=== PATIENT | female | born 1950 | race African-American/Black ===

== ENCOUNTER 2016-06-04 01:30 | Emergency (ER) | payer MEDICARE, MEDICAID ==
[~2016-06-04] VITALS: Ht 160 cm; Wt 65.0 kg
[~2016-06-04 01:30] MED LIST: SIMV20TA6; WELLBUTRIN; [UNRECOGNIZED DRUG - CODE]
[2016-06-04] MEDS ORDERED: KETOROLAC 60MG/2ML VIAL IM STA (01:59)
[2016-06-04] MEDS ORDERED: CYCLOBENZAPRINE 10MG TABLET PO ONE (02:00)
[2016-06-04 02:32] LABS: BASOPHILS % 2.3 % (0.0-2.0); EOSINOPHILS % 0.6 % (0.0-5.0); HEMATOCRIT. 37.7 % (36.0-48.0); HEMOGLOBIN. 11.4 g/dL (12.0-16.0); MEAN CORPUSCULAR HEMOGLOBIN 19.4 pg (28.0-32.0); MEAN CORPUSCULAR HGB CONC 30.3 g/dL (31.0-37.0); MEAN CORPUSCULAR VOLUME 64.1 fL (81.0-99.0); MEAN PLATELET VOLUME 9.7 fl (7.4-10.4); MONOCYTES % 10.2 % (2.0-8.0); NEUTROPHILS % 56.9 % (40.0-76.0); PLATELET 264 x1000/uL (130-400); RED BLOOD CELL COUNT 5.87 mill/uL (4.2-5.4); RED CELL DISTRIBUTION WIDTH 16.6 % (11.6-14.6); WHITE BLOOD COUNT 9.1 x1000/uL (4.5-11.0)
[2016-06-04 02:34] LABS: ADD RBC MORPHOLOGY YES; DIFFERENTIAL COMMENT 1
[2016-06-04 02:35] LABS: HYPOCHROMASIA 2+; PLATELET ESTIMATE NORMAL
[2016-06-04 02:44] LABS: ALANINE AMINOTRANSFERASE 33 IU/L (13-61); ALBUMIN 3.4 g/dL (3.4-5.0); ANION GAP 11; CALCIUM 9.7 mg/dL (8.5-10.1); CARBON DIOXIDE 28 mEq/L (21-32); CHLORIDE 106 mEq/L (98-107); CREATINE KINASE 211 IU/L (26-192); INDEX HEMOLYSI 1 (1-3); INDEX ICTERIC 1 (1-4); INDEX LIPEMIC 1 (1-3); UREA NITROGEN BLOOD 20 mg/dL (7-21); eGFR 60 mL/min (>60)
[2016-06-04 04:08] VITALS: BP 136/76
== END 2016-06-04 04:09 | disposition home or self-care (01) ==
LOC: ER 01:39
DX: M54.2 Cervicalgia (principal); I10 Essential (primary) hypertension; R11.0 Nausea; F17.200 Nicotine dependence, unspecified, uncomplicated; Z88.0 Allergy status to penicillin
CPT/HCPCS: 36415; 80053; 82550; 85025; 96372; 99284; J1885; J7030